=== PATIENT | male | born 1965 | race Caucasian/White ===

== ENCOUNTER 2022-05-24 06:36 | Observation (INO) | payer MEDICAID, SELFPAY ==
[2022-05-24] VITALS (13 sets, daily range): BP systolic 110–147; BP diastolic 68–89; PULSE 72–92; RESP 12–22; TEMP 36.1–36.9; O2SAT 87–96; BMI 82.0; BMI 78.2
--- NOTE | 2022-05-24 07:09 | CT_ITS ---
INDICATION: pain EXAMINATION: CT LUMBAR SPINE - CT Spine Lumbar W/O Contrast Injection TECHNIQUE: Helically acquired images were obtained of the lumbar spine. 2D reformats were reviewed. A radiation dose optimization technique was used for this scan. IV Contrast dosage and agent: None. COMPARISON: None. FINDINGS: Motion artifact and body habitus obscure anatomic detail. No fracture or traumatic subluxation. No discrete lytic or blastic abnormality observed. Normal alignment. There is multilevel endplate spondylosis and degenerative disc disease. No critical stenosis. The visualized abdominal aorta is not dilated. There are peripheral calcifications of the abdominal aorta. There are bilateral fat-containing adrenal lesions. The mass on the right measures 5.1 x 6.7 cm and contains coarse calcifications. The lesion on the left measures 3.[address]/Spine Lumbar without Contrast IMPRESSION: No evidence of acute lumbar spinal fracture or spondylolisthesis. Multilevel degenerative changes. Bilateral adrenal lesions, may reflect myelolipomas; consider MRI with contrast and hormonal workup with possible endocrinology consult. Atherosclerosis. Electronically Signed: Faith Jacobs MD at 8:40 EST ,
--- NOTE | 2022-05-24 07:09 | CT_ITS ---
INDICATION: pain EXAMINATION: CT THORACIC SPINE - CT Spine Thoracic W/O Contrast Injection TECHNIQUE: Helically acquired images were obtained of the thoracic spine. 2D reformats were reviewed. A radiation dose optimization technique was used for this scan. IV Contrast dosage and agent: None. COMPARISON: None. FINDINGS: No fracture. No discrete lytic or blastic abnormality observed. There is multilevel spondylosis and degenerative disc disease. There is multilevel facet hypertrophy. There are peripheral calcifications of the aortic arch. There are multiple calcified pulmonary nodules. There are calcified mediastinal and hilar lymph nodes. There are bilateral fat-containing adrenal lesions. The mass on the right measures 5.1 x 6.7 cm and contains coarse calcifications. The lesion on the left measures 3.[address]/Spine Thoracic without Contras IMPRESSION: Multilevel degenerative disc disease. Findings suggestive of a history of granulomatous disease. Bilateral fat-containing adrenal masses may reflect myelolipomas; consider MRI with contrast and hormonal workup with possible endocrinology consult. Atherosclerosis. Electronically Signed: Faith Jacobs MD at 8:35 EST ,
--- NOTE | 2022-05-24 07:11 | ED.VIS.BACK ---
HPI History of Present Illness Chief Complaint: Back Informant: patient Onset/Context/Timing Onset: Days (6 days) Context: Gradual Onset Location: Lumbar and Right Leg Current Severity: Moderate Maximum Severity: Severe Narrative Narrative: Patient presents secondary to back pain. He has a history of sciatica and states he developed back pain 6 days ago. He has been lying in bed since that time. No recent fall or injury. No prior surgery. believes he may have had 1 prior steroid injection but is not sure. EMS was called this morning to transport the patient. I am told that as they were trying to get him out of the house the cot dropped. He complains of some mid back pain that is occurred since that fall. He did strike his head but there was no loss of consciousness. He is not on anticoagulants. Patient states he has been taking methocarbamol as a muscle relaxer along with ibuprofen and gabapentin without improvement of his symptoms. PFSH PFSH Medical History Anxiety Asthma Bipolar disorder Chronic pain Depression GERD (gastroesophageal reflux disease) Hernia, abdominal Smoker Home Medications bupropion HCl 150 mg 24 hr tablet, extended release 150 mg PO DAILY 05/24/22 [History Last Taken Unknown] buspirone 15 mg tablet 15 mg BID 05/24/22 [History Last Taken Unknown] dextromethorphan-guaifenesin ER 60 mg-1,200 mg tab,extend release,12hr (Mucinex DM) 1 tab PO BID 05/24/22 [History Last Taken Unknown] furosemide 40 mg tablet 40 mg PO BID 05/24/22 [History Last Taken Unknown] gabapentin 600 mg tablet 600 mg PO TID 05/24/22 [History Last Taken Unknown] lamotrigine 150 mg tablet 150 mg PO DAILY 05/24/22 [History Last Taken Unknown] methocarbamol 500 mg tablet 500 mg PO TID 05/24/22 [History Last Taken Unknown] trazodone 100 mg tablet 200 mg PO QHS 05/24/22 [History Last Taken Unknown] Allergy/AdvReac Type Severity Reaction Status Date / Time No Known Allergies Allergy Verified 05/24/22 06:44 Social History Smoking Status: Current every day smoker tobacco type: cigarettes ROS ROS ED Constitutional Constitutional ED: Denies chills or fever(s) Eyes Eyes: Denies change in vision or discharge from eye(s) ENT ENT ED: Denies discharge from eye(s), rhinorrhea or sore throat Cardiovascular Cardiovascular: Denies chest pain or palpitations Respiratory/Chest Respiratory/Chest: Denies cough or dyspnea Gastrointestinal Gastrointestinal: Denies abdominal pain, diarrhea, nausea or vomiting Genitourinary Genitourinary ED: Denies dysuria Musculoskeletal Musculoskeletal: Reports back pain and extremity pain Integumentary Denies Abrasions or rash Neurologic Neurologic: Reports paresthesias; Denies headache(s) or weakness Psychiatric Psychiatric: Denies anxiety or depression Allergic/Immunologic Allergic/Immunologic ED: Denies lip swelling or urticaria EXAM Physical Exam Const Vital Signs: 05/24/22 06:37 05/24/22 08:00 05/24/22 08:01 Temperature 97.9 F Temperature Source Temporal Pulse Rate 72 Respiratory Rate 18 Blood Pressure 147/89 H Blood Pressure Mean 108 Pulse Ox 96 87 96 Oxygen Delivery Method Room Air Room Air Nasal Cannula Oxygen Flow Rate (L/min) 2 Positive well nourished and well developed General Appearance ED: well developed HEENT Reports normocephalic and head/scalp atraumatic Eyes PERRL and EOMs intact bilaterally Neck supple Chest Wall inspection of chest normal and palpation of chest normal Resp normal respiratory effort and clear to auscultation bilaterally Cardio regular rate and regular rhythm GI normal to inspection, nondistended, normoactive bowel sounds Palpation: soft Extremity Extremity Narrative: Chronic venous skin changes bilateral lower extremities. Neuro oriented x3 and no sensory deficits noted Sensorium / Orientation: alert Psych mental status grossly normal Skin no rashes or lesions noted MDM MDM MDM Narrative Medical decision making narrative: IV line is established. CBC and chemistry studies obtained as I anticipate patient will require admission. CT scan of the thoracic and lumbar spine obtained. Patient was given 0.5 mg of Dilaudid along with Zofran. Patient is on 2 L nasal cannula at time of my initial examination. He states he is not normally on oxygen. He does not particularly feel short of breath. Lab Data Attestation: I reviewed the patient's lab results. Labs: Laboratory Results - last 24 hr 05/24/22 05/24/22 07:22 07:22 WBC 11.8 H RBC 4.73 Hgb 13.7 Hct 44.0 MCV 93.0 MCH 29.0 MCHC 31.1 L RDW Std Deviation 49.1 H RDW Coeff of Cristiane 14.4 Plt Count 248 MPV 11.5 Immature Gran % (Auto) 0.300 Neut % (Auto) 74.1 H Lymph % (Auto) 15.7 L [place] % (Auto) 7.7 Eos % (Auto) 1.9 Baso % (Auto) 0.3 Absolute Neuts (auto) 8.7 H Absolute Lymphs (auto) 1.85 Nucleated RBC % 0 Sodium 141 Potassium 3.8 Chloride 104 Carbon Dioxide 31.0 Anion Gap 6 BUN 9 Creatinine 0.75 Estim Creat Clear Calc 104.05 Est GFR (MDRD) Af Amer 139 Est GFR (MDRD) Non-Af 115 BUN/Creatinine Ratio 12.1 Glucose 121 H Calcium 8.7 Radiography Diagnostic Testing: Clinical Impression(s) from Imaging Studies Lumbar Spine CT 05/24/22 07:09 IMPRESSION: No evidence of acute lumbar spinal fracture or spondylolisthesis. Multilevel degenerative changes. Bilateral adrenal lesions, may reflect myelolipomas; consider MRI with contrast and hormonal workup with possible endocrinology consult. Atherosclerosis. Electronically Signed: Faith Jacobs MD at 8:40 EST , Thoracic Spine CT 05/24/22 07:09 IMPRESSION: Multilevel degenerative disc disease. Findings suggestive of a history of granulomatous disease. Bilateral fat-containing adrenal masses may reflect myelolipomas; consider MRI with contrast and hormonal workup with possible endocrinology consult. Atherosclerosis. Electronically Signed: Faith Jacobs MD at 8:35 EST , Treatment and Re-Evaluation Narrative: CBC reveals mild leukocytosis with a white count 11.8 but normal differential is noted. Chemistry studies are unremarkable. CT scan of the thoracic and lumbar spines reveal no acute findings. Multilevel degenerative changes are appreciated. Patient's oxygen requirements have increased and he is now currently on 5 L nasal cannula. I believe this is likely secondary to body habitus and the fact that he is lying flat given his back pain. DuoNeb treatment is ordered as well as Afrin nasal spray as patient states he feels he is congested after crying because of pain. Patient will require admission both for treatment of his back pain and inability to ambulate as well as his hypoxia. I will discuss case with hospitalist. Discharge Plan Triage Chief Complaint: Back ED Provider: Lurdes Schmitz Dx/Rx/DC Orders Clinical Impression: Back pain, Sciatica, Unable to ambulate, Hypoxia Prescriptions: No Action furosemide 40 mg tablet 40 mg PO BID methocarbamol 500 mg tablet 500 mg PO TID lamotrigine 150 mg tablet 150 mg PO DAILY Label Comments: TAKE 1 TABLET BY MOUTH DAILY gabapentin 600 mg tablet 600 mg PO TID trazodone 100 mg tablet 200 mg PO QHS Label Comments: TAKE 1-2 TABLETS BY MOUTH BEFORE BED NEEDED FOR SLEEP dextromethorphan-guaifenesin [Mucinex DM] 60-1,200 mg tablet extended release 12 hr 1 tab PO BID buspirone 15 mg tablet 15 mg BID bupropion HCl 150 mg tablet extended release 24 hr 150 mg PO DAILY Label Comments: TAKE 1 TABLET BY MOUTH DAILY IN THE MORNING Primary Care Provider: Care Physician,No Primary Referrals: Care Physician,No Primary [Primary Care Provider] - Disposition Disposition: Acute Care Hospital [facility]
[2022-05-24] MEDS: Ondansetron 4 MG/2 ML Vial IV (07:30)
[2022-05-24] MEDS: HYDROmorphone 1 MG/ML Syringe 0.5 MG IV (07:31)
[2022-05-24 07:43] LABS: Absolute Lymphocyte Count 1.85 X10^3/uL (0.83-4.51); Absolute Neutrophil Count 8.7 X10^3/uL (2.0-7.7); Basophil# 0.03 X10^3/uL; Basophil% 0.3 % (0-1); Eosinophil# 0.23 X10^3/uL; Eosinophils% 1.9 % (0-5); Hemoglobin 13.7 g/dL (13.0-16.5); Lymphocyte # 1.85 X10^3/ul (0.83-4.51); Lymphocyte % 15.7 % (19-41); Mean Corp Hgb Conc 31.1 g/dL (32-36); Mean Platelet Vol. 11.5 fl (6.2-12.0); Monocyte# 0.91 X10^3/uL; Monocyte% 7.7 % (0-10); NRBC Flagged by Analyzer 0 % (0-5); Neutrophil # 8.74 X10^3/uL (2.7-7.7); Neutrophil % 74.1 % (47-70); Platelet Count 248 K/mm3 (150-450); RBC Distribution Width CV 14.4 % (11.6-14.6); RBC Distribution Width SD 49.1 fl (35.1-43.9); Red Blood Count 4.73 M/mm3 (4.6-6.2); White Blood Count 11.8 K/mm3 (4.4-11.0)
[2022-05-24 07:52] LABS: Anion Gap 6 (5-15); BUN 9 mg/dL (7-18); BUN/Creat Ratio 12.1 RATIO (10-20); Calcium,Total 8.7 mg/dL (8.5-10.1); Chloride 104 mmol/L (98-107); Creatinine, Serum 0.75 mg/dL (0.70-1.30); EST Glomerular Filtration Rate 115 mL/min (>60); Est Glom Filt Rate - Afr Amer 139 mL/min (>60); Estimated Creatinine Clearance 104.05 ml/min; Glucose 121 mg/dL (74-106); Potassium 3.8 mmol/L (3.5-5.1); Sodium Level 141 mmol/L (136-145)
[2022-05-24] MEDS: Ipratropium/Albuterol Sulfate 3 ML AMPUL.NEB INHALATION ×3 (08:43→19:19)
[2022-05-24] MEDS: Oxymetazoline 0.05% 1 SPRAY SPRAY.BTL 2 SPRAY NASAL (08:54)
--- NOTE | 2022-05-24 11:36 | NURSING ---
bariatric bed pt is in unable to weight pt
[2022-05-24] MEDS: Morphine 2 MG/ML Syringe IV ×2 (12:28→18:17)
[2022-05-24] MEDS: 0.9% Saline Lock 10 ML Syringe IV (12:29)
[2022-05-24] MEDS: Heparin Injection (Vial) 5,000 UNIT/ML VIAL 5000 UNIT SC ×2 (12:32→21:32)
[2022-05-24] MEDS: buPROPion (XL) 150 MG TABLET.XL PO (12:32)
[2022-05-24] MEDS: Furosemide 40 MG Tablet PO ×2 (12:32→18:17)
[2022-05-24] MEDS: lamoTRIgine 150 MG Tablet PO (12:32)
[2022-05-24] MEDS: busPIRone 15 MG TABLET PO ×2 (12:32→21:31)
[2022-05-24] MEDS: Ibuprofen 600 MG Tablet PO (14:12)
[2022-05-24] MEDS: Methocarbamol 500 MG Tablet PO ×2 (14:12→21:32)
[2022-05-24] MEDS: Gabapentin 600 MG Tablet PO ×2 (14:13→21:35)
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
--- NOTE | 2022-05-24 18:50 | CASEMGMT ---
SW provided patient with [facility] list of providers for SNF. SW encouraged patient to review list and provide unit medical social consultant with multiple choices. Verna LOZOYA
[2022-05-24] MEDS: traZODone 100 MG Tablet 200 MG PO (21:33)
[2022-05-25] VITALS (10 sets, daily range): BP systolic 108–163; BP diastolic 69–93; PULSE 61–83; RESP 16–22; TEMP 36.2–36.7; O2SAT 86–96
[2022-05-25] MEDS: oxyCODONE 5 MG Tablet 10 MG PO ×4 (01:52→18:29)
[2022-05-25] MEDS: 0.9% Saline Lock 10 ML Syringe IV ×4 (03:39→21:23)
[2022-05-25] MEDS: Morphine 2 MG/ML Syringe IV (03:39)
[2022-05-25] MEDS: Methocarbamol 500 MG Tablet PO (05:12)
[2022-05-25] MEDS: Gabapentin 600 MG Tablet PO (05:12)
[2022-05-25 05:15] LABS: Bacteria 0 SEEN /hpf (None Seen); White Blood Cells 0 SEEN /hpf (0-5)
[2022-05-25 05:18] LABS: Color, Urine Yellow (Yellow); Glucose, Dipstick Normal (Normal); Ketone-Dipstick Negative (Negative); Leukocyte Esterase-Dipstick 25 /ul (Negative); Nitrite-Dipstick Negative (Negative); Occult Blood-Urine 250 /ul (Negative); Protein-Dipstick Negative (Negative); Urine Bilirubin Dipstick Negative (Negative); Urine Clarity Clear (Clear); Urine Urobilinogen Normal (Normal)
[2022-05-25 05:38] LABS: Mucous, Urine RARE /hpf (<or=2+); Red Blood Cells-Urine 10-25 SEEN /hpf (0-5); Squamous Epithelial Cells - UA 0-5 SEEN /hpf (0-5)
[2022-05-25] MEDS: lamoTRIgine 150 MG Tablet PO (08:39)
[2022-05-25] MEDS: busPIRone 15 MG TABLET PO ×2 (08:39→21:11)
[2022-05-25] MEDS: Furosemide 40 MG Tablet PO ×2 (08:41→18:29)
[2022-05-25] MEDS: buPROPion (XL) 150 MG TABLET.XL PO (08:41)
[2022-05-25] MEDS: Heparin Injection (Vial) 5,000 UNIT/ML VIAL 5000 UNIT SC ×2 (08:41→21:11)
[2022-05-25] MEDS: Ipratropium/Albuterol Sulfate 3 ML AMPUL.NEB INHALATION ×2 (13:21→19:27)
[2022-05-25] MEDS: Gabapentin 800 MG Tablet PO ×2 (14:06→21:12)
[2022-05-25] MEDS: Methocarbamol 750 MG Tablet PO ×2 (14:06→21:12)
[2022-05-25] MEDS: Ibuprofen 600 MG Tablet PO ×2 (14:06→21:30)
--- NOTE | 2022-05-25 15:08 | PN.HOSP_ITS ---
Subjective Subjective She was seen and examined today, he still complains of significant right leg and lower back pain today, I have decided to adjust his medications. Objective Data Objective Data Vital Signs: Vital Signs Temp Pulse Resp BP Pulse Ox O2 Del Method O2 Flow Rate 97.1 F L 83 22 H 115/72 95 Nasal Cannula 2.5 05/25/22 09:14 05/25/22 13:45 05/25/22 13:45 05/25/22 09:14 05/25/22 09:14 05/25/22 09:18 05/25/22 09:18 Oxygen Flow Rate (L/min) 2.5 Oxygen Delivery Method Nasal Cannula Weight: 226.796 kg Body Mass Index (BMI) 78.2 Intake & Output: Intake and Output for Last 24 Hours 05/23/22 05/24/22 05/25/22 23:59 23:59 23:59 Intake Total 510 / 830 930 / 930 Output Total 3550 / 3550 Balance 510 / -770 -2620 / -2620 Lab / Micro Data Result Diagrams: 05/24/22 07:22 05/24/22 07:22 Labs: Laboratory Results - last 24 hr 05/25/22 05:06: Urine Color Yellow, Urine Clarity Clear, Urine pH 5.0, Ur S pecific [place] 1.020, Urine Protein Negative, Urine Glucose (UA) Normal, Urine Ketones Negative, Urine Occult Blood 250 H, Urine Nitrite Negative, Urine Bilirubin Negative, Urine Urobilinogen Normal, Ur Leukocyte Esterase 25 H, Urine RBC 10-25 SEEN, Urine WBC 0 SEEN, Ur Squamous Epith Cells 0-5 SEEN, Urine Bacteria 0 SEEN, Urine Mucus RARE Physical Exam Narrative Patient has severe morbid obesity, a complete examination was unable to be carried out due to the patient's inability to move in bed and walk due to back and leg pain Const alert, oriented x3 and no apparent distress General Appearance: cooperative and well developed Orientation / Consciousness: awake, oriented to person, oriented to place and oriented to time HEENT normocephalic, head/scalp atraumatic, hearing grossly normal bilaterally and moist oral mucous membranes Eyes PERRL, EOMs intact bilaterally and conjunctivae normal Neck supple, no JVD, thyroid normal and no carotid bruits General: trachea midline Resp normal respiratory effort, no retractions, no use of accessory muscles and clear to auscultation bilaterally Auscultation: Negative for rales, rhonchi or wheezes Cardio regular rate, regular rhythm, S1 normal heart sound, S2 normal heart sound, no murmurs, no rub and no gallops GI normal to inspection, nondistended, normoactive bowel sounds, soft to palpation, non-tender and non-distended GI Narrative: Complaint abdominal exam was not able to be carried out due to the patient's severe morbid obesity Skin Skin Narrative: Patient has an area of mild redness and warmth over the patient's right anterior lower leg-this has improved from yesterday, this area is only few centimeters in diameter and length General Skin Exam: no breakdown Neuro oriented x3, CN's II-XII intact bilaterally, moves all extremities, no focal motor deficits and no sensory deficits noted Neuro Narrative: Patient was unable to walk or sit up due to low back pain Sensorium / Orientation: awake, alert, oriented to person, oriented to place and oriented to time Speech: speech normal Psych affect normal Assessment & Plan Assessment/Plan (1) Back pain: PLAN: Plan 1. Right-sided radicular leg pain-secondary to L4-L5 and L5-S1 nerve impingement right side-I have decided to increase the patient's Neurontin dosage and he remains at this time on IV corticosteroids. Patient is being seen by PT and OT, he will most likely need short-term placement in a group home facility due to his inability to ambulate. #2 hypoxia-secondary to narcotic administration on an overlay of hypoventilation syndrome-patient's pulse ox will be monitored, patient smokes but he does not want a nicotine patch, he has a past history of asthma. Patient states that he has been short of breath at home normally when he ambulates. Patient is on low- flow oxygen at 2-1/2 L at this time. #3 morbid obesity-complicates care, medical course, recovery, and prognosis. #4 bipolar disorder-patient will remain on his present medications #5 degenerative joint disease lumbar spine-complicates care, medical course, recovery, and prognosis, patient will be seen by PT and OT Total clinical time spent by myself addressing the patient's medical issues, reviewing all the data, and collaborating with patient's care team: 36 minutes Charges/Coding Visit Charges Inpatient E&M: 26543 Subs Hosp L2
[2022-05-25] MEDS: traZODone 100 MG Tablet 200 MG PO (21:12)
[2022-05-26] VITALS (10 sets, daily range): BP systolic 145–151; BP diastolic 83–103; PULSE 64–86; RESP 18–20; TEMP 36.6; O2SAT 92–95
[2022-05-26] MEDS: oxyCODONE 5 MG Tablet 10 MG PO ×4 (01:28→21:15)
[2022-05-26] MEDS: Gabapentin 800 MG Tablet PO ×3 (05:20→21:15)
[2022-05-26] MEDS: Methocarbamol 750 MG Tablet PO ×2 (05:20→13:51)
[2022-05-26] MEDS: Ibuprofen 600 MG Tablet PO ×2 (05:20→21:15)
[2022-05-26] MEDS: 0.9% Saline Lock 10 ML Syringe IV ×3 (06:04→21:13)
[2022-05-26] MEDS: Ipratropium/Albuterol Sulfate 3 ML AMPUL.NEB INHALATION ×3 (07:18→19:07)
[2022-05-26] MEDS: Heparin Injection (Vial) 5,000 UNIT/ML VIAL 5000 UNIT SC ×2 (08:18→21:21)
[2022-05-26] MEDS: buPROPion (XL) 150 MG TABLET.XL PO (08:18)
[2022-05-26] MEDS: lamoTRIgine 150 MG Tablet PO (08:18)
[2022-05-26] MEDS: busPIRone 15 MG TABLET PO ×2 (08:18→21:16)
[2022-05-26] MEDS: Furosemide 40 MG Tablet PO ×2 (08:18→18:01)
--- NOTE | 2022-05-26 13:15 | CASEMGMT ---
Addendum entered by Cary Vargas 05/26/22 15:04: [facility] also unable to accept at this time due to no open beds. Addendum entered by Cary Vargas 05/26/22 13:54: [facility] replied to referral. Unable to accept due to weight exceeding facilities limit. Addendum entered by Cary Vargas 05/26/22 13:31: [facility]. Original Note: Social Work? SW in to meet with pt following update from BILLY weekend report that pt will need placement at nursing facility. SW introduced self and role at the hospital. Pt agreeable to discussing discharge planning. Pt reviewed list from [facility] that was previously given to pt. Pt stated had made top three choices and listed them as [facility], [facility], ad [facility]. BILLY discussed there may be some limitations with these choices due to pt bariatric status. Pt voiced understanding, would be willing to look at list of facilities that are open to bariatric pt's if needed. Due to complexity of pt case SW will send referral to all three choices. PLAN: SNF? Cary Vargas, PASTA PRESS OPERATOR?
--- NOTE | 2022-05-26 16:30 | PN.HOSP_ITS ---
Subjective Subjective Seen and examined today, he still complains of lower back pain, he also complains of sciatica down his right leg still. Patient remains on 2 L/min nasal cannula oxygen at this time. Objective Data Objective Data Vital Signs: Vital Signs Temp Pulse Resp BP Pulse Ox O2 Del Method O2 Flow Rate 97.9 F 83 18 148/83 H 95 Room Air 2 05/26/22 15:00 05/26/22 15:00 05/26/22 15:00 05/26/22 15:00 05/26/22 15:00 05/26/22 15:00 05/26/22 15:00 Oxygen Flow Rate (L/min) 2 Oxygen Delivery Method Room Air Weight: 226.796 kg Body Mass Index (BMI) 78.2 Intake & Output: Intake and Output for Last 24 Hours 05/24/22 05/25/22 05/26/22 23:59 23:59 23:59 Intake Total 510 / 830 1330 / 1330 240 / 240 Output Total 4150 / 4150 850 / 850 Balance 510 / -770 -2820 / -2820 -610 / -610 Lab / Micro Data Result Diagrams: 05/24/22 07:22 05/24/22 07:22 Micro: Microbiology 05/25/22 05:06 Urine, Clean Catch Urine Culture - Final Gram positive organism Physical Exam Narrative Patient has severe morbid obesity, a complete examination was unable to be carried out due to the patient's inability to move in bed and walk due to back and leg pain Const alert, oriented x3 and no apparent distress General Appearance: cooperative and well developed Orientation / Consciousness: awake, oriented to person, oriented to place and oriented to time HEENT normocephalic, head/scalp atraumatic, hearing grossly normal bilaterally and moist oral mucous membranes Eyes PERRL, EOMs intact bilaterally and conjunctivae normal Neck supple, no JVD, thyroid normal and no carotid bruits General: trachea midline Resp normal respiratory effort, no retractions, no use of accessory muscles and clear to auscultation bilaterally Auscultation: Negative for rales, rhonchi or wheezes Cardio regular rate, regular rhythm, S1 normal heart sound, S2 normal heart sound, no murmurs, no rub and no gallops GI normal to inspection, nondistended, normoactive bowel sounds, soft to palpation, non-tender and non-distended GI Narrative: Complaint abdominal exam was not able to be carried out due to the patient's severe morbid obesity Skin Skin Narrative: Patient has an area of mild redness and warmth over the patient's right anterior lower leg-this has improved from yesterday, this area is only few centimeters in diameter and length General Skin Exam: no breakdown Neuro oriented x3, CN's II-XII intact bilaterally, moves all extremities, no focal motor deficits and no sensory deficits noted Neuro Narrative: Patient was unable to walk or sit up due to low back pain Sensorium / Orientation: awake, alert, oriented to person, oriented to place and oriented to time Speech: speech normal Psych affect normal Assessment & Plan Assessment/Plan (1) Back pain: PLAN: Plan 1. Right-sided radicular leg pain-secondary to L4-L5 and L5-S1 nerve impingement right side-patient remains on IV corticosteroids at this time, I decided to increase his Robaxin to 1500 mg 3 times a day #2 hypoxia-secondary to narcotic administration on an overlay of hypoventilation syndrome-patient's pulse ox will be monitored, patient smokes but he does not want a nicotine patch, he has a past history of asthma. Patient states that he has been short of breath at home normally when he ambulates. Patient is on low- flow oxygen at 2-1/2 L at this time. #3 morbid obesity-complicates care, medical course, recovery, and prognosis. #4 bipolar disorder-patient will remain on his present medications #5 degenerative joint disease lumbar spine-complicates care, medical course, recovery, and prognosis, patient is being seen by PT and OT Total clinical time spent by myself addressing the patient's medical issues, reviewing all the data, and collaborating with patient's care team: 35 minutes Charges/Coding Visit Charges Inpatient E&M: 03606 Subs Hosp L2
[2022-05-26] MEDS: Methocarbamol 750 MG Tablet 1500 MG PO (21:15)
[2022-05-26] MEDS: traZODone 100 MG Tablet 200 MG PO (21:16)
[2022-05-27] VITALS (9 sets, daily range): BP systolic 131–158; BP diastolic 80–90; PULSE 69–83; RESP 16–18; TEMP 36.6–37; O2SAT 90–95
[2022-05-27] MEDS: Ibuprofen 600 MG Tablet PO ×2 (04:09→11:16)
[2022-05-27] MEDS: oxyCODONE 5 MG Tablet 10 MG PO ×2 (04:09→11:16)
[2022-05-27] MEDS: Nystatin Powder 15gm Bottle 1 APPLIC TOPICAL ×3 (04:10→21:56)
[2022-05-27] MEDS: Methocarbamol 750 MG Tablet 1500 MG PO ×3 (05:09→21:52)
[2022-05-27] MEDS: Gabapentin 800 MG Tablet PO ×3 (05:09→21:52)
[2022-05-27] MEDS: 0.9% Saline Lock 10 ML Syringe IV ×3 (05:09→21:52)
[2022-05-27] MEDS: Ipratropium/Albuterol Sulfate 3 ML AMPUL.NEB INHALATION ×3 (07:16→19:21)
--- NOTE | 2022-05-27 07:54 | CASEMGMT ---
Social Work [facility] responded to referral. At this time SNF is unable to accept pt. All three choices have declined pt. SW will meet with pt today to get new choices. SPENCER Villarreal
--- NOTE | 2022-05-27 09:29 | CASEMGMT ---
Addendum entered by Cary Vargas 05/27/22 13:30: [facility] unable to accept pt. SW will meet with pt to get next choices. SPENCER Villarreal Addendum entered by Cary Vargas 05/27/22 10:12: [facility] Unable to accept pt due to weight limit and pt being dependant. Referral will be sent to pt's next choice, [facility]. SPENCER Villarreal Original Note: Social Work SW in to meet with pt. SW shared news that all three choices from yesterday have declined pt. SW provided list of facilities known to accept bariatric pts. Pt wishes to stay in [place], as pt lives in [place] and does not want to go far from home. Pt stated [facility] would be next choice, then [facility] if [facility] is unable to accept. SW sent referral to [facility]. SPENCER Villarreal
[2022-05-27] MEDS: busPIRone 15 MG TABLET PO ×2 (11:05→21:52)
[2022-05-27] MEDS: lamoTRIgine 150 MG Tablet PO (11:05)
[2022-05-27] MEDS: Furosemide 40 MG Tablet PO ×2 (11:05→18:38)
[2022-05-27] MEDS: Heparin Injection (Vial) 5,000 UNIT/ML VIAL 5000 UNIT SC ×2 (11:05→21:56)
[2022-05-27] MEDS: buPROPion (XL) 150 MG TABLET.XL PO (11:06)
--- NOTE | 2022-05-27 14:55 | CASEMGMT ---
Addendum entered by Cary Vargas 05/27/22 15:30: [facility] in [place] has declined pt. This SW sent referral to [facility]. Original Note: Social Work SW in to discuss with pt that previous choices from this day have both declined. Pt voiced understanding. Pt gave permission for pt to send referral to [facility] in [place] as it is closer, then [facility] in [place] if [facility] is unable to accept. SW sent referral to [facility] via [facility]. Followed up referral with email to Rena in admissions at [facility] to notify that a referral had been sent. SPENCER Villarreal
--- NOTE | 2022-05-27 16:17 | PN.HOSP_ITS ---
Subjective Subjective Patient was seen and examined today, he still states that he is not able to walk due to severe back pain, patient states he was able to sit up at side of the bed today. I encouraged him to get up to a chair during the day if he was able to. community services officer is having a hard time placing the patient due to his weight. Objective Data Objective Data Vital Signs: Vital Signs Temp Pulse Resp BP Pulse Ox O2 Del Method O2 Flow Rate 98.2 F 80 18 147/90 H 92 Nasal Cannula 2 05/27/22 16:14 05/27/22 16:14 05/27/22 16:14 05/27/22 16:14 05/27/22 16:14 05/27/22 16:14 05/27/22 16:14 Oxygen Flow Rate (L/min) 2 Oxygen Delivery Method Nasal Cannula Weight: 226.796 kg Body Mass Index (BMI) 78.2 Intake & Output: Intake and Output for Last 24 Hours 05/25/22 05/26/22 05/27/22 23:59 23:59 23:59 Intake Total 1330 / 1330 240 / 240 Output Total 4150 / 4150 4250 / 4250 2150 / 2150 Balance -2820 / -2820 -4010 / -4010 -2150 / -2150 Lab / Micro Data Result Diagrams: 05/24/22 07:22 05/24/22 07:22 Micro: Microbiology 05/25/22 05:06 Urine, Clean Catch Urine Culture - Final Gram positive organism Physical Exam Narrative Patient has severe morbid obesity, a complete examination was unable to be carried out due to the patient's inability to move in bed and walk due to back and leg pain Const alert, oriented x3 and no apparent distress General Appearance: cooperative and well developed Orientation / Consciousness: awake, oriented to person, oriented to place and oriented to time HEENT normocephalic, head/scalp atraumatic, hearing grossly normal bilaterally and moist oral mucous membranes Eyes PERRL, EOMs intact bilaterally and conjunctivae normal Neck supple, no JVD, thyroid normal and no carotid bruits General: trachea midline Resp normal respiratory effort, no retractions, no use of accessory muscles and clear to auscultation bilaterally Auscultation: Negative for rales, rhonchi or wheezes Cardio regular rate, regular rhythm, S1 normal heart sound, S2 normal heart sound, no murmurs, no rub and no gallops GI normal to inspection, nondistended, normoactive bowel sounds, soft to palpation, non-tender and non-distended GI Narrative: Complaint abdominal exam was not able to be carried out due to the patient's s evere morbid obesity Skin Skin Narrative: Patient has an area of mild redness and warmth over the patient's right anterior lower leg-this has improved from yesterday, this area is only few centimeters in diameter and length General Skin Exam: no breakdown Neuro oriented x3, CN's II-XII intact bilaterally, moves all extremities, no focal motor deficits and no sensory deficits noted Neuro Narrative: Patient was unable to walk or sit up due to low back pain Sensorium / Orientation: awake, alert, oriented to person, oriented to place and oriented to time Speech: speech normal Psych affect normal Assessment & Plan Assessment/Plan (1) Back pain: PLAN: Plan 1. Right-sided radicular leg pain-secondary to L4-L5 and L5-S1 nerve impingement right side-patient remains on IV corticosteroids at this time, I decided to place the patient on time-released narcotics at this time to see if we could get the patient more mobile in the hospital. Patient knows there is a risk for taking these and he has consented to trying them. #2 hypoxia-secondary to narcotic administration on an overlay of hypoventilation syndrome-patient's pulse ox will be monitored, patient smokes but he does not want a nicotine patch, he has a past history of asthma. Patient states that he has been short of breath at home normally when he ambulates. Patient is on low- flow oxygen at 2 L at this time. #3 morbid obesity-complicates care, medical course, recovery, and prognosis. #4 bipolar disorder-patient will remain on his present medications #5 degenerative joint disease lumbar spine-complicates care, medical course, recovery, and prognosis, patient is being seen by PT and OT Total clinical time spent by myself addressing the patient's medical issues, reviewing all the data, and collaborating with patient's care team: 37 minutes Charges/Coding Visit Charges Inpatient E&M: 34966 Subs Hosp L2
[2022-05-27] MEDS: traZODone 100 MG Tablet 200 MG PO (21:52)
[2022-05-27] MEDS: morphine SR 15 MG Tablet 30 MG PO (21:52)
[2022-05-28] VITALS (7 sets, daily range): BP systolic 127–147; BP diastolic 81–92; PULSE 75–97; RESP 17–18; TEMP 36.6–37.2; O2SAT 91–95
[2022-05-28] MEDS: oxyCODONE 5 MG Tablet 10 MG PO ×2 (03:30→09:28)
[2022-05-28] MEDS: Ibuprofen 600 MG Tablet PO (03:30)
[2022-05-28] MEDS: Nystatin Powder 15gm Bottle 1 APPLIC TOPICAL ×3 (03:31→21:10)
[2022-05-28] MEDS: Gabapentin 800 MG Tablet PO ×3 (05:26→21:09)
[2022-05-28] MEDS: Methocarbamol 750 MG Tablet 1500 MG PO ×3 (05:26→21:09)
[2022-05-28] MEDS: 0.9% Saline Lock 10 ML Syringe IV (05:26)
[2022-05-28] MEDS: Ipratropium/Albuterol Sulfate 3 ML AMPUL.NEB INHALATION ×3 (06:37→18:57)
--- NOTE | 2022-05-28 09:20 | CASEMGMT ---
Addendum entered by Cary Vargas 05/28/22 11:20: [facility], and [facility] in [place] unable to accept. [facility] and [facility] are currently reviewing pt case. Addendum entered by Cary Vargas 05/28/22 10:43: [facility] and [facility] have reached out and are unable to accept pt. Original Note: Social work SW in to speak with pt and inform that two choices given yesterday have also declined. Pt voicing frustration but understands case is complex. SW discussed new plan with pt in sending referral to several SNFs at once to increase odds of an acceptance sooner. Pt agreeable, stated if cannot find a facility within 30 miles of home zip code would rather go home. SW discussed how pt would care for self if going home. Pt stated would crawl. Pt discussed paranoia and feelings that make pt not feel safe to go to SNF further away from home. SW offered validation for pt feelings, reviewed coping skills that could help pt manage these feelings of anxiety and concern. SW informed pt that referrals would be sent to all in network SNFs within 30 miles of pt home. Referral sent to [facility], [facility], [facility], [facility], [facility], [facility], [facility], [facility], and [facility]. Will await responses. PLAN: SNF SPENCER Villarreal
[2022-05-28] MEDS: morphine SR 15 MG Tablet 30 MG PO ×2 (09:28→21:08)
[2022-05-28] MEDS: busPIRone 15 MG TABLET PO ×2 (09:28→21:08)
[2022-05-28] MEDS: Heparin Injection (Vial) 5,000 UNIT/ML VIAL 5000 UNIT SC ×2 (09:28→21:09)
[2022-05-28] MEDS: lamoTRIgine 150 MG Tablet PO (09:29)
[2022-05-28] MEDS: buPROPion (XL) 150 MG TABLET.XL PO (09:29)
[2022-05-28] MEDS: Furosemide 40 MG Tablet PO ×2 (09:29→18:36)
--- NOTE | 2022-05-28 11:07 | PN.HOSP_ITS ---
Subjective Subjective Patient was seen and examined today, he states he feels he is a little bit more mobile since he has been started on the morphine yesterday, I asked him to consider nursing homes that were within 30 to 50 miles and he agreed. I will let case management know. We have not been able to find him any nursing homes within 30 miles of his home. Objective Data Objective Data Vital Signs: Vital Signs Temp Pulse Resp BP Pulse Ox O2 Del Method O2 Flow Rate 98.9 F 91 18 145/82 H 91 Nasal Cannula 2 05/28/22 09:19 05/28/22 09:19 05/28/22 09:19 05/28/22 09:19 05/28/22 09:19 05/28/22 09:19 05/28/22 09:19 Oxygen Flow Rate (L/min) 2 Oxygen Delivery Method Nasal Cannula Weight: 226.796 kg Body Mass Index (BMI) 78.2 Intake & Output: Intake and Output for Last 24 Hours 05/26/22 05/27/22 05/28/22 23:59 23:59 23:59 Intake Total 240 / 240 Output Total 4250 / 4250 4550 / 4550 2500 / 2500 Balance -4010 / -4010 -4550 / -4550 -2500 / -2500 Lab / Micro Data Result Diagrams: 05/24/22 07:22 05/24/22 07:22 Micro: Microbiology 05/25/22 05:06 Urine, Clean Catch Urine Culture - Final Gram positive organism Physical Exam Narrative Patient has severe morbid obesity, a complete examination was unable to be carried out due to the patient's inability to move in bed and walk due to back and leg pain Const alert, oriented x3 and no apparent distress General Appearance: cooperative and well developed Orientation / Consciousness: awake, oriented to person, oriented to place and oriented to time HEENT normocephalic, head/scalp atraumatic, hearing grossly normal bilaterally and moist oral mucous membranes Eyes PERRL, EOMs intact bilaterally and conjunctivae normal Neck supple, no JVD, thyroid normal and no carotid bruits General: trachea midline Resp normal respiratory effort, no retractions, no use of accessory muscles and clear to auscultation bilaterally Auscultation: Negative for rales, rhonchi or wheezes Cardio regular rate, regular rhythm, S1 normal heart sound, S2 normal heart sound, no murmurs, no rub and no gallops GI normal to inspection, nondistended, normoactive bowel sounds, soft to palpation, non-tender and non-distended GI Narrative: Complaint abdominal exam was not able to be carried out due to the patient's severe morbid obesity Skin Skin Narrative: Patient has an area of mild redness and warmth over the patient's right anterior lower leg-this has improved from yesterday, this area is only few centimeters in diameter and length General Skin Exam: no breakdown Neuro oriented x3, CN's II-XII intact bilaterally, moves all extremities, no focal m otor deficits and no sensory deficits noted Neuro Narrative: Patient was unable to walk or sit up due to low back pain Sensorium / Orientation: awake, alert, oriented to person, oriented to place and oriented to time Speech: speech normal Psych affect normal Assessment & Plan Assessment/Plan (1) Back pain: PLAN: Plan 1. Right-sided radicular leg pain-secondary to L4-L5 and L5-S1 nerve impingement right side-patient remains on IV corticosteroids at this time, he is also on a muscle relaxant and time release morphine, and immediate release OxyContin. #2 hypoxia-secondary to narcotic administration on an overlay of hypoventilation syndrome-patient's pulse ox will be monitored, patient smokes but he does not want a nicotine patch, he has a past history of asthma. Patient states that he has been short of breath at home normally when he ambulates. Patient is on low- flow oxygen at 2 L at this time. #3 morbid obesity-complicates care, medical course, recovery, and prognosis. #4 bipolar disorder-patient will remain on his present medications #5 degenerative joint disease lumbar spine-complicates care, medical course, recovery, and prognosis, patient is being seen by PT and OT Total clinical time spent by myself addressing the patient's medical issues, r eviewing all the data, and collaborating with patient's care team: 38 minutes Charges/Coding Visit Charges Inpatient E&M: 66089 Subs Hosp L2
--- NOTE | 2022-05-28 11:48 | CASEMGMT ---
Social Work SW expanded search for SNF to 50 miles. Referrals sent to [facility], [facility], [facility], [facility], [facility], [facility], [facility], [facility] and [facility]. Will await responses from these SNFs and move on to further away places if these all deny. SPENCER Villarreal
--- NOTE | 2022-05-28 14:54 | CASEMGMT ---
Social Work [facility] in [place] is able to accept pt. Pt voiced understanding and is okay with this facility as it is only 20 miles from home. SW asked [employer] to begin precert. PLAN: [facility] in [place], pending precert SPENCER Villarreal
[2022-05-28] MEDS: traZODone 100 MG Tablet 200 MG PO (21:09)
[2022-05-29] VITALS (7 sets, daily range): BP systolic 148–159; BP diastolic 59–94; PULSE 80–95; RESP 12–18; TEMP 36.3–36.9; O2SAT 88–95
[2022-05-29] MEDS: oxyCODONE 5 MG Tablet 10 MG PO ×4 (01:47→16:03)
[2022-05-29] MEDS: Ibuprofen 600 MG Tablet PO ×3 (03:30→16:03)
[2022-05-29] MEDS: Gabapentin 800 MG Tablet PO ×3 (05:54→20:55)
[2022-05-29] MEDS: Methocarbamol 750 MG Tablet 1500 MG PO ×3 (05:55→20:56)
[2022-05-29] MEDS: 0.9% Saline Lock 10 ML Syringe IV ×2 (05:55→13:17)
[2022-05-29] MEDS: Nystatin Powder 15gm Bottle 1 APPLIC TOPICAL ×2 (05:55→13:21)
[2022-05-29] MEDS: Ipratropium/Albuterol Sulfate 3 ML AMPUL.NEB INHALATION ×3 (07:02→19:26)
[2022-05-29] MEDS: morphine SR 15 MG Tablet 30 MG PO ×2 (09:05→20:56)
[2022-05-29] MEDS: buPROPion (XL) 150 MG TABLET.XL PO (09:06)
[2022-05-29] MEDS: busPIRone 15 MG TABLET PO ×2 (09:06→20:57)
[2022-05-29] MEDS: Furosemide 40 MG Tablet PO ×2 (09:06→17:48)
[2022-05-29] MEDS: lamoTRIgine 150 MG Tablet PO (09:06)
[2022-05-29] MEDS: Heparin Injection (Vial) 5,000 UNIT/ML VIAL 5000 UNIT SC ×2 (09:07→20:55)
[2022-05-29] MEDS: Lactulose 20 GM/30 ML UDC 30 GM PO ×2 (14:09→16:06)
--- NOTE | 2022-05-29 15:35 | PCM.TXEXTCAR ---
Diet Diet Order/Speech Therapy: 05/24/22 11:33 Diet: Regular - General Food consistency:: Regular Liquid Consistency:: Regular/Thin Routine Orders/Code Status O2 Liters per Minute: 3 O2 Frequency: Continuous Keep PO Greater than or Equal to (%): 90 Code Status: Full Code Wound(s) rle: Wound Type: Stasis Ulcer Therapies Weight Bearing: Full weight bearing Physical Therapy: Eval and Treat Occupational Therapy: Eval and Treat Problem/Diagnosis (1) Back pain: Status: Acute Code(s): M54.9 - Dorsalgia, unspecified Plan 1. Right-sided radicular leg pain-secondary to L4-L5 and L5-S1 nerve impingement right side-patient remains on IV corticosteroids at this time, he is also on a muscle relaxant and time release morphine, and immediate release OxyContin. #2 hypoxia-secondary to narcotic administration on an overlay of hypoventilation syndrome-patient's pulse ox will be monitored, patient smokes but he does not want a nicotine patch, he has a past history of asthma. Patient states that he has been short of breath at home normally when he ambulates. Patient is on low-flow oxygen at 3 L at this time. #3 morbid obesity-complicates care, medical course, recovery, and prognosis. #4 bipolar disorder-patient will remain on his present medications #5 degenerative joint disease lumbar spine-complicates care, medical course, recovery, and prognosis, patient is being seen by PT and OT Total clinical time spent by myself addressing the patient's medical issues, reviewing all the data, and collaborating with patient's care team: 38 minutes Allergies/Procedures Done in Hospital Allergies No Known Allergies Allergy (Verified 05/24/22 06:44) Procedures: None Type of Care/Length of Stay Estimated LOS: Convalescent Care Less Than 30 days Type of Care Needed: Skilled Rehab Potential: Good Prognosis: Good Additional Orders/Day of Discharge H&P will serve as current which was dated: 05/24/22 Day of Discharge: 05/29/22 Dietary and Speech Recommendations Dietitian Recommendations/Changes: Continue liberal Regular diet - pt not interested in therapeutic diet at this time Discharge Plan Admission Admit Date/Time: 05/25/22 19:45 Primary Reason for Your Visit: Back pain, right radicular pain Attending Provider: Avtar Evans Primary Care Provider: Care Physician,No Primary Discharge Orders/Prescriptions Prescriptions: New ipratropium-albuterol 0.5 mg-3 mg(2.5 mg base)/3 mL Solution For Nebulization 3 ml inhalation Q6HWA.RT Qty: 0 0RF docusate calcium 240 mg Capsule 240 mg PO BID Qty: 0 0RF methocarbamol 750 mg Tablet 1,500 mg PO TID Qty: 0 0RF gabapentin 800 mg Tablet 800 mg PO TID Qty: 0 0RF trazodone 100 mg Tablet 200 mg PO QHS Qty: 0 0RF morphine 15 mg Tablet Extended Release 30 mg PO BID 5 Days Qty: 20 0RF ibuprofen 600 mg Tablet 600 mg PO Q6H PRN (Reason: Pain 1-10) Qty: 0 0RF heparin (porcine) 5,000 unit/mL Solution 5,000 unit subcut Q12 Qty: 0 0RF nystatin [Nyamyc] 100,000 unit/gram Powder 1 applic topical TID Qty: 0 0RF Protocol: *Topical Application Instructions APPLICATION INSTRUCTIONS: groins and folds oxycodone 5 mg Tablet 10 mg PO Q4H PRN PRN (Reason: Pain Score 4-10) 5 Days Qty: 30 0RF prednisone 20 mg tablet 20 mg PO BID Qty: 1 0RF Rx Instructions: 20 mg twice a day for 3 days, then 30 mg once a day for 3 days, then 20 mg once a day for 3 days, then 10 mg once a day for 3 days, then discontinue pantoprazole [Protonix] 20 mg tablet,delayed release (DR/EC) 20 mg PO DAILY Qty: 1 0RF polyethylene glycol 3350 [Miralax] 17 gram powder in packet 17 g PO BID Qty: 14 0RF Continued furosemide 40 mg tablet 40 mg PO BID lamotrigine 150 mg tablet 150 mg PO DAILY Label Comments: TAKE 1 TABLET BY MOUTH DAILY buspirone 15 mg tablet 15 mg BID bupropion HCl 150 mg tablet extended release 24 hr 150 mg PO DAILY Label Comments: TAKE 1 TABLET BY MOUTH DAILY IN THE MORNING albuterol sulfate 90 mcg/actuation Hfa Aerosol Inhaler 2 puff INHALATION Q6H PRN (Reason: SOB/WHEEZING) budesonide-formoterol [Symbicort] 160-4.5 mcg/actuation HFA aerosol inhaler 2 inh INHALATION BID Discontinued methocarbamol 500 mg tablet 500 mg PO TID gabapentin 600 mg tablet 600 mg PO TID trazodone 100 mg tablet 100 - 200 mg PO QHS Label Comments: TAKE 1-2 TABLETS BY MOUTH BEFORE BED NEEDED FOR SLEEP dextromethorphan-guaifenesin [Mucinex DM] 60-1,200 mg tablet extended release 12 hr 1 tab PO BID ibuprofen 600 mg tablet 600 mg PO Q6H PRN (Reason: Pain) Label Comments: TAKE 1 TABLET BY MOUTH EVERY 4 TO 6 HOURS NEEDED Referrals / Follow Up: Care Physician,No Primary [Primary Care Provider] - Disposition Disposition (needs filled in before D/C Order can be placed): Long Term Facility
--- NOTE | 2022-05-29 15:56 | DS.PCM_ITS ---
Providers Date of Admission: 05/25/22 Date of Discharge: 05/29/22 Primary Care Physician: No Primary Care Phys Reason For Visit: INTRACTABLE BACK PAIN Diagnosis Discharge Diagnosis (1) Back pain: Status: Acute Code(s): M54.9 - Dorsalgia, unspecified Plan 1. Right-sided radicular leg pain-secondary to L4-L5 and L5-S1 nerve impingement right side-patient remains on IV corticosteroids at this time, he is also on a muscle relaxant and time release morphine, and immediate release OxyContin. #2 hypoxia-secondary to narcotic administration on an overlay of hypoventilation syndrome-patient's pulse ox will be monitored, patient smokes but he does not want a nicotine patch, he has a past history of asthma. Patient states that he has been short of breath at home normally when he ambulates. Patient is on low- flow oxygen at 3 L at this time. #3 morbid obesity-complicates care, medical course, recovery, and prognosis. #4 bipolar disorder-patient will remain on his present medications #5 degenerative joint disease lumbar spine-complicates care, medical course, recovery, and prognosis, patient is being seen by PT and OT Total clinical time spent by myself addressing the patient's medical issues, reviewing all the data, and collaborating with patient's care team: 38 minutes Medications at Discharge Home Medications albuterol sulfate 90 mcg/actuation aerosol inhaler 2 puff inhalation Q6H PRN SOB/WHEEZING 05/24/22 budesonide-formoterol HFA 160 mcg-4.5 mcg/actuation aerosol inhaler (Symbicort) 2 inh inhalation BID COPD 05/24/22 bupropion HCl 150 mg 24 hr tablet, extended release 150 mg PO DAILY 05/24/22 buspirone 15 mg tablet 15 mg BID 05/24/22 furosemide 40 mg tablet 40 mg PO BID 05/24/22 lamotrigine 150 mg tablet 150 mg PO DAILY 05/24/22 docusate calcium 240 mg capsule 240 mg PO BID #0 caps 05/29/22 gabapentin 800 mg tablet 800 mg PO TID #0 tabs 05/29/22 heparin (porcine) 5,000 unit/mL injection solution 5,000 unit subcut Q12 #0 mL 05/29/22 ibuprofen 600 mg tablet 600 mg PO Q6H PRN Pain 1-10 #0 tabs 05/29/22 ipratropium 0.5 mg-albuterol 3 mg (2.5 mg base)/3 mL nebulization soln 3 ml inhalation Q6HWA.RT #0 mL 05/29/22 methocarbamol 750 mg tablet 1,500 mg PO TID #0 tabs 05/29/22 morphine 15 mg tablet,extended release 30 mg PO BID 5 days #20 tabs 05/29/22 nystatin 100,000 unit/gram topical powder (Nyamyc) 1 applic topical TID #0 grams 05/29/22 oxycodone 5 mg tablet 10 mg PO Q4H PRN PRN Pain Score 4-10 5 days #30 tabs 05/29/22 pantoprazole 20 mg tablet,delayed release (Protonix) 20 mg PO DAILY #1 TAB 05/29/22 polyethylene glycol 3350 17 gram oral powder packet (Miralax) 17 g PO BID #14 ea 05/29/22 prednisone 20 mg tablet 20 mg PO BID #1 TAB 05/29/22 trazodone 100 mg tablet 200 mg PO QHS #0 tabs 05/29/22 Hospital Course Operations None Procedures None Summary of Care Provided Minutes Spent on Discharge: 33 Hospital Course: This 56-year-old white male was seen in the emergency room at [facility] with chief complaint of lower back pain and right leg pain radiating from the right lower back. Patient has been unable to get out of bed at home for approximately 5 days, he is morbidly obese and also has bipolar disorder. Imaging studies were performed in the emergency room, patient had a thoracic spi ne CT and a lumbar spine CT performed, he was noted to have no evidence of acute lumbar or thoracic spinal fracture or spondylolisthesis, there is multilevel degenerative changes noted, there are bilateral adrenal lesions which may reflect myelolipomas. Due to the patient's weight, he could not undergo an MRI. Patient was admitted to [place] [address], he was seen by PT and OT, he was placed on IV Solu-Medrol, IV narcotics for pain, muscle relaxers, and then eventually time-released morphine for pain control. Patient's ambulatory status improved only slightly during his hospitalization and it was recommended that he go to an extended care facility for short-term rehab services. Due to the patient's morbid obesity, it was several days before facility was found that would accept the patient for rehab services. Patient was noted to need supplemental oxygen during his hospital stay, he told this examiner that he had been short of breath at home but had not had a diagnosis of COPD or sleep apnea from his family physician. Patient required only low-flow oxygen. On 05/29/2022, patient was seen and examined: On examination he appeared in no distress. Patient was morbidly obese. Vital signs as documented. Skin warm and dry and without overt rashes. Neck without JVD, neck was supple, trachea midline, thyroid was normal. Lungs clear bilaterally, normal air movement was noted. Heart exam notable for regular rhythm, normal sounds and absence of murmurs, rubs or gallops. Abdomen unremarkable and without evidence of organomegaly, masses, or abdominal aortic enlargement. Bowel sounds are p resent, abdomen is not distended. Extremities generalized edema was noted in both lower legs, no cyanosis was noted, no clubbing was noted. Neuro: Cranial nerves II through XII are grossly intact, no focal motor deficits were noted, sensation to light touch and pinprick intact, motor exam 5/5 throughout. Psych: Patient is alert and oriented x3, he does not appear anxious or depressed, he does not appear agitated. Patient was not able to ambulate or sit up on the side of the bed during my examination. On 05/29/2022, patient was seen and examined and discharged to a local extended care facility in stable condition. Weight / BMI Weight Weight: 226.796 kg Body Mass Index (BMI) 78.2 ABG / Lab / Microbiology Data Result Diagrams: 05/24/22 07:22 05/24/22 07:22 Microbiology: Microbiology 05/29/22 14:29 Nasal Secretion SARS-CoV-2 Antigen (Rapid) - Final 05/25/22 05:06 Urine, Clean Catch Urine Culture - Final Gram positive organism Meaningful Use Info Meaningful Use Diagnoses (Choose all that apply): None applicable Discharge Plan Admission Admit Date/Time: 05/25/22 19:45 Primary Reason for Your Visit: Back pain, right radicular pain Attending Provider: Avtar Evans Primary Care Provider: Care Physician,No Primary Discharge Orders/Prescriptions Prescriptions: New ipratropium-albuterol 0.5 mg-3 mg(2.5 mg base)/3 mL Solution For Nebulization 3 ml inhalation Q6HWA.RT Qty: 0 0RF docusate calcium 240 mg Capsule 240 mg PO BID Qty: 0 0RF methocarbamol 750 mg Tablet 1,500 mg PO TID Qty: 0 0RF gabapentin 800 mg Tablet 800 mg PO TID Qty: 0 0RF trazodone 100 mg Tablet 200 mg PO QHS Qty: 0 0RF morphine 15 mg Tablet Extended Release 30 mg PO BID 5 Days Qty: 20 0RF ibuprofen 600 mg Tablet 600 mg PO Q6H PRN (Reason: Pain 1-10) Qty: 0 0RF heparin (porcine) 5,000 unit/mL Solution 5,000 unit subcut Q12 Qty: 0 0RF nystatin [Nyamyc] 100,000 unit/gram Powder 1 applic topical TID Qty: 0 0RF Protocol: *Topical Application Instructions APPLICATION INSTRUCTIONS: groins and folds oxycodone 5 mg Tablet 10 mg PO Q4H PRN PRN (Reason: Pain Score 4-10) 5 Days Qty: 30 0RF prednisone 20 mg tablet 20 mg PO BID Qty: 1 0RF Rx Instructions: 20 mg twice a day for 3 days, then 30 mg once a day for 3 days, then 20 mg once a day for 3 days, then 10 mg once a day for 3 days, then discontinue pantoprazole [Protonix] 20 mg tablet,delayed release (DR/EC) 20 mg PO DAILY Qty: 1 0RF polyethylene glycol 3350 [Miralax] 17 gram powder in packet 17 g PO BID Qty: 14 0RF Continued furosemide 40 mg tablet 40 mg PO BID lamotrigine 150 mg tablet 150 mg PO DAILY Label Comments: TAKE 1 TABLET BY MOUTH DAILY buspirone 15 mg tablet 15 mg BID bupropion HCl 150 mg tablet extended release 24 hr 150 mg PO DAILY Label Comments: TAKE 1 TABLET BY MOUTH DAILY IN THE MORNING albuterol sulfate 90 mcg/actuation Hfa Aerosol Inhaler 2 puff INHALATION Q6H PRN (Reason: SOB/WHEEZING) budesonide-formoterol [Symbicort] 160-4.5 mcg/actuation HFA aerosol inhaler 2 inh INHALATION BID Discontinued methocarbamol 500 mg tablet 500 mg PO TID gabapentin 600 mg tablet 600 mg PO TID trazodone 100 mg tablet 100 - 200 mg PO QHS Label Comments: TAKE 1-2 TABLETS BY MOUTH BEFORE BED NEEDED FOR SLEEP dextromethorphan-guaifenesin [Mucinex DM] 60-1,200 mg tablet extended release 12 hr 1 tab PO BID ibuprofen 600 mg tablet 600 mg PO Q6H PRN (Reason: Pain) Label Comments: TAKE 1 TABLET BY MOUTH EVERY 4 TO 6 HOURS NEEDED Referrals / Follow Up: Care Physician,No Primary [Primary Care Provider] - Disposition Disposition (needs filled in before D/C Order can be placed): Longterm Facility Charges/Coding Visit Charges Inpatient E&M: 00411 Disch Hosp >30min
[2022-05-29] MEDS: Bisacodyl 5 MG Tablet 10 MG PO (16:06)
--- NOTE | 2022-05-29 16:25 | CASEMGMT ---
Social Work Precert has been obtained for pt to go to [facility]. Physician updated and pt is ready for discharge today. 7000 convalescent form completed in [facility] and sent along with discharge orders and covid results to [facility] via [facility]. Transportation arranged with [facility] ambulance for 7:00 pickup via cot. SW met with pt he is agreeable to discharge plan as stated above. Pt states he will update family. [facility] and bedside nurse notified of discharge time. Disposition: [facility], skilled level of care under convalescent stay. SPENCER Estrella
[2022-05-30 00:14] VITALS: BP 125/72; PULSE 82; RESP 20; TEMP 36.4; O2SAT 93
== END 2022-05-30 00:28 | disposition skilled nursing facility (03) | DRG 347 ==
LOC: ED 08:45 → MS3 09:48
PROVIDERS: Family Medicine; Admitting Provider Internal Medicine; Emergency Provider Emergency Medicine; Visit Provider Internal Medicine
DX: M47.26 Other spondylosis with radiculopathy, lumbar region (principal); F31.9 Bipolar disorder, unspecified; Z68.45 Body mass index [BMI] 70 or greater, adult; E66.01 Morbid (severe) obesity due to excess calories; F17.210 Nicotine dependence, cigarettes, uncomplicated; M54.30 Sciatica, unspecified side; I87.2 Venous insufficiency (chronic) (peripheral); R09.02 Hypoxemia; G89.29 Other chronic pain; Z79.51 Long term (current) use of inhaled steroids; R60.0 Localized edema; K21.9 Gastro-esophageal reflux disease without esophagitis; F41.9 Anxiety disorder, unspecified; Z79.899 Other long term (current) drug therapy
CPT/HCPCS: 72128; 72131; 80048; 81001; 85025; 87086; 87088; 87426; 94640; 94667; 94762; 96372; 96374; 96375; 96376; 97110; 97162; 97166; 97530; 97535; 99221; 99252; 99285; A4216; G0378; G0463; J2405